=== PATIENT | female | born 1970 | race American Indian/Alaskan Native ===

== ENCOUNTER 2017-07-28 18:06 | Emergency (ER) | payer OTHER ==
[2017-07-28 18:24] VITALS: BMI 39.5
[2017-07-28 18:25] VITALS: RESP 18; TEMP 99
[2017-07-28 20:04] LABS: BASO # 0.03 K/mm3 (0.0-2.0); BASO % 0.3 % (0.0-3.0); EOS # 0.2 (0.0-0.7); EOS % 1.9 % (1.5-5.0); GRAN # 6.5 (1.4-6.5); GRAN % 61.1 % (50.0-68.0); HEMOGLOBIN 12.2 g/dL (12.0-16.0); LYMPH # 2.7 (1.2-3.4); LYMPH % 25.4 % (22.0-35.0); MEAN CELL VOLUME 75.4 fl (80.0-105.0); MEAN CORPUSCULAR HEMOGLOBIN 23.8 pg (25.0-35.0); MEAN CORPUSCULAR HGB CONC 31.5 g/dl (31.0-37.0); MEAN PLATELET VOLUME 9.8 fl (7.0-11.0); MONO # 1.2 (0.1-0.6); MONO % 11.3 % (1.0-6.0); RBC 5.13 10^6/uL (3.5-6.1); RED CELL DISTRIBUTION WIDTH 17.7 % (11.5-14.5); WHITE BLOOD COUNT 10.6 10^3/ul (4.5-11.0)
[2017-07-28 20:32] LABS: INFLUENZA A B NEGATIVE FOR FLU A/B (NEGATIVE)
[2017-07-28 20:32] LABS: ALB/GLOB RATIO 1.1 (1.1-1.8); ALBUMIN 3.6 g/dL (3.0-4.8); ALT/SGPT 32 U/L (7-56); AST/SGOT 38 U/L (14-36); BLOOD UREA NITROGEN 12 mg/dL (7-21); GFR AFRICAN-AMERICAN > 60; GFR NON-AFRICAN AMERICAN > 60; LIPASE 51 U/L (23-300)
[2017-07-28 21:04] LABS: URINE BILIRUBIN NEGATIVE (NEGATIVE); URINE BLOOD TRACE-INTACT (NEGATIVE); URINE GLUCOSE (UA) NEGATIVE (NEGATIVE); URINE LEUKOCYTE ESTERASE NEGATIVE Leu/uL (NEGATIVE); URINE NITRATE NEGATIVE (NEGATIVE); URINE PROTEIN NEGATIVE mg/dL (<30 mg/dL); URINE UROBILINOGEN 0.2 E.U./dL (<1 E.U./dL)
[2017-07-28 21:11] LABS: URINE APPEARANCE CLEAR (CLEAR); URINE COLOR YELLOW (YELLOW)
[2017-07-28] MEDS ORDERED: levoFLOXacin 500 MG TAB PO STA (21:13)
[2017-07-28 21:17] LABS: HCG,QUALITATIVE URINE NEGATIVE (NEGATIVE); URINE BACTERIA MOD (NEG)
--- NOTE | 2017-07-28 21:18 | ED PDOC ---
Arrival/HPI - General Chief Complaint: Abdominal Pain Time Seen by Provider: 07/28/17 19:05 Historian: Patient - History of Present Illness Narrative History of Present Illness (Text): 07/28/17 21:00 Alfreda Travis is a 46 year old female, whose past medical history includes hypertension and hypothyroidism, who presents to the Emergency department complaining of sore throat for the past couple of days. Patient also reports subjective fever, diarrhea, and LLQ discomfort. Patient denies any chest pain, shortness of breath, nausea, vomiting, urinary symptoms, back pain, neck pain, headache, dizziness, or any other complaints. Symptom Onset: Gradual Symptom Course: Unchanged Activities at Onset: Light Context: Home Past Medical History - Provider Review Nursing Documentation Reviewed: Yes - Infectious Disease Hx of Infectious Diseases: None - Tetanus Immunization Tetanus Immunization: Unknown - Cardiac Hx Hypertension: Yes - Pulmonary Hx Sleep Apnea: Yes - Neurological Hx Neurological Disorder: No - Endocrine/Metabolic Hx Hypothyroidism: Yes - Musculoskeletal/Rheumatological Other/Comment: Sciatica - Psychiatric Hx Substance Use: No - Surgical History Hx Dilation and Curettage: Yes Hx Orthopedic Surgery: Yes (R knee sx/arthroscopy) Other/Comment: Left ankle - Anesthesia Hx Anesthesia: Yes Hx Anesthesia Reactions: No Family/Social History - Physician Review Nursing Documentation Reviewed: Yes Family/Social History: Unknown Family HX Smoking Status: Never Smoked Hx Alcohol Use: No Hx Substance Use: No Allergies/Home Meds Allergies/Adverse Reactions: Allergies amoxicillin trihydrate [From Augmentin] Allergy (Verified 02/23/16 17:27) RASH potassium clavulanate [From Augmentin] Allergy (Verified 02/23/16 17:27) RASH Home Medications: Home Meds Medication Instructions Recorded Confirmed Levothyroxine [Synthroid] 112 mcg PO DAILY 02/23/16 07/28/17 Zolpidem [Ambien] 10 mg PO HS 02/23/16 07/28/17 Review of Systems - Physician Review All systems were reviewed & negative as marked: Yes - Review of Systems Constitutional: Fevers Eyes: Normal ENT: Sore Throat Respiratory: Normal. absent: SOB, Cough Cardiovascular: Normal. absent: Chest Pain Gastrointestinal: Diarrhea. absent: Abdominal Pain, Nausea, Vomiting Genitourinary Female: Normal. absent: Dysuria, Frequency, Hematuria, Urine Output Changes Musculoskeletal: Normal. absent: Back Pain, Neck Pain Skin: Normal. absent: Rash Neurological: Normal. absent: Headache, Dizziness Endocrine: Normal Hemo/Lymphatic: Normal Psychiatric: Normal Physical Exam Vital Signs Reviewed: Yes Vital Signs Temp Pulse Resp BP Pulse Ox 07/28/17 21:38 74 18 139/83 98 07/28/17 18:24 99.0 F 80 18 131/83 97 Temperature: Afebrile Blood Pressure: Normal Pulse: Regular Respiratory Rate: Normal Appearance: Positive for: Well-Appearing, Non-Toxic, Comfortable Pain Distress: None Mental Status: Positive for: Alert and Oriented X 3 - Systems Exam Head: Present: Atraumatic, Normocephalic Pupils: Present: PERRL Extroacular Muscles: Present: EOMI Conjunctiva: Present: Normal Ears: Present: Normal, NORMAL TM, Normal Canal. No: Erythema Mouth: Present: Moist Mucous Membranes Pharnyx: Present: ERYTHEMA (Pharyngeal erythema). No: EXUDATE, TONSILS ENLARGED , Peritonsilar Swelling, Uvular Deviation, Muffled/Hoarse Voice, Strider, Soft Palate/Uvular Edema Nose (External): Present: Atraumatic Nose (Internal): Present: Normal Inspection Neck: Present: Normal Range of Motion. No: Meningeal Signs, MIDLINE TENDERNESS , Paraspinal Tenderness Respiratory/Chest: Present: Clear to Auscultation, Good Air Exchange. No: Respiratory Distress, Accessory Muscle Use Cardiovascular: Present: Regular Rate and Rhythm, Normal S1, S2. No: Murmurs Abdomen: Present: Normal Bowel Sounds. No: Tenderness, Distention, Peritoneal Signs Back: Present: Normal Inspection. No: CVA Tenderness, Midline Tenderness, Paraspinal Tenderness Upper Extremity: Present: Normal Inspection. No: Cyanosis, Edema Lower Extremity: Present: Normal Inspection. No: Edema Neurological: Present: GCS=15, CN II-XII Intact, Speech Normal Skin: Present: Warm, Dry, Normal Color. No: Rashes Psychiatric: Present: Alert, Oriented x 3, Normal Insight, Normal Concentration Medical Decision Making ED Course and Treatment: 07/28/17 19:20 Impression: 46 year old female complaining of sore throat, subjective fever, diarrhea, and LLQ discomfort for the past couple of days. Differential Diagnosis included but are not limited to: pharyngitis vs. viral syndrome Plan: -- Labs, lipase -- Rapid strep -- Throat culture -- Urinalysis, urine cultures -- Reassess and disposition Progress Notes: 07/28/17 21:40 On reevaluation the patient feels better and is in no acute distress. I have discussed the results and plan with the patient, who expresses understanding. Patient given the opportunity to ask question, all questions were answered and there is agreement with the plan to discharge the patient home Patient is stable for discharge. Patient was instructed to follow up with physician/clinic in 1-2 days or return if symptoms persist/worsen or new concerning symptoms arise. - Lab Interpretations Lab Results: 07/28/17 19:49 07/28/17 19:49 Lab Results 07/28/17 20:50: Urine Color Yellow, Urine Appearance Clear, Urine pH 6.0, Ur Specific [place] 1.020, Urine Protein Negative, Urine Glucose (UA) Negative, Urine Ketones Negative, Urine Blood Trace-intact H, Urine Nitrate Negative, Urine Bilirubin Negative, Urine Urobilinogen 0.2, Ur Leukocyte Esterase Negative , Urine RBC 2 - 5, Urine WBC 1 - 3, Ur Epithelial Cells 4 - 5, Urine Bacteria Mod, Urine HCG, Qual Negative 07/28/17 19:56: Influenza Typ A,B (EIA) Negative for flu a/b, Grp A Beta Strep Ag Negative 07/28/17 19:49: Sodium 140, Potassium 3.9, Chloride 102, Carbon Dioxide 25, Anion Gap 17, BUN 12, Creatinine 0.9, Est GFR ( Amer) > 60, Est GFR (Non- Af Amer) > 60, Random Glucose 91, Calcium 9.0, Total Bilirubin 0.2, AST 38 H, ALT 32, Alkaline Phosphatase 72, Total Protein 7.0, Albumin 3.6, Globulin 3.4, Albumin/Globulin Ratio 1.1, Lipase 51 07/28/17 19:49: WBC 10.6, RBC 5.13, Hgb 12.2, Hct 38.7, MCV 75.4 L, MCH 23.8 L, MCHC 31.5, RDW 17.7 H, Plt Count 327, MPV 9.8, Gran % 61.1, Lymph % (Auto) 25.4 , [place] % (Auto) 11.3 H, Eos % (Auto) 1.9, Baso % (Auto) 0.3, Gran # 6.50, Lymph # (Auto) 2.7, [place] # (Auto) 1.2 H, Eos # (Auto) 0.2, Baso # (Auto) 0.03 I have reviewed the lab results: Yes - Medication Orders Current Medication Orders: Discontinued Medications Levofloxacin (Levaquin) 500 mg PO STAT STA PRN Reason: Protocol Stop: 07/28/17 21:14 Last Admin: 07/28/17 21:30 Dose: 500 mg - Scribe Statement The provider has reviewed the documentation as recorded by the Scribmissael Russell All medical record entries made by the Nicolasibmissael were at my direction and personally dictated by me. I have reviewed the chart and agree that the record accurately reflects my personal performance of the history, physical exam, medical decision making, and the department course for this patient. I have also personally directed, reviewed, and agree with the discharge instructions and disposition. Disposition/Present on Arrival - Present on Arrival Any Indicators Present on Arrival: No History of DVT/PE: No History of Uncontrolled Diabetes: No Urinary Catheter: No History of Decub. Ulcer: No History Surgical Site Infection Following: None - Disposition Have Diagnosis and Disposition been Completed?: Yes Diagnosis: Pharyngitis Disposition: HOME/ ROUTINE Disposition Time: 21:40 Condition: GOOD Discharge Instructions (ExitCare): Sore Throat, Adult (DC) Prescriptions: levoFLOXacin [Levaquin] 500 mg PO DAILY #10 tab Referrals: Laci Fernandes MD [Primary Care Provider] - Follow up with primary Forms: [facility] (Croatian), WORK NOTE
[2017-07-28 21:38] VITALS: BP 139/83; PULSE 74; O2SAT 98
== END 2017-07-28 21:42 | disposition home or self-care (01) ==
LOC: ED 18:06
DX: J02.9 Acute pharyngitis, unspecified (principal); I10 Essential (primary) hypertension

== ENCOUNTER 2018-08-07 15:46 | Emergency (ER) | payer OTHER ==
[2018-08-07 15:47] VITALS: BMI 39.5
[2018-08-07 16:21] VITALS: TEMP 98.2
--- NOTE | 2018-08-07 17:22 | ED PDOC ---
Arrival/HPI - General Chief Complaint: Hip Pain Time Seen by Provider: 08/07/18 15:47 Historian: Patient - History of Present Illness Narrative History of Present Illness (Text): 08/07/18 17:49 47-year-old female presents today with right hip pain and low back pain status post fall. Patient states just prior to arrival she slipped on the ice and fell landing on the right side. Patient denies hitting her head. Patient denies abdominal pain. No nausea or vomiting. No chest pain or shortness of breath. Patient states she has a history of sciatica and was concerned of falling on the hip would make the sciatica worse. Patient states she is now having some pain in the right lower back and in the right hip that radiates into the leg. She denies numbness weakness or tingling in the extremity. No dizziness or weakness. Denies headaches. No medications taken for pain at home. No other complaints Past Medical History - Provider Review Nursing Documentation Reviewed: Yes - Travel History Have you recently traveled outside [place] w/in the past 3 mons?: No - Infectious Disease Hx of Infectious Diseases: None - Tetanus Immunization Tetanus Immunization: Unknown - Cardiac Hx Cardiac Disorders: Yes Hx Hypertension: Yes - Pulmonary Hx Respiratory Disorders: Yes Hx Sleep Apnea: Yes - Neurological Hx Neurological Disorder: No - HEENT Hx HEENT Disorder: No - Renal Hx Renal Disorder: No - Endocrine/Metabolic Hx Endocrine Disorders: Yes Hx Hypothyroidism: Yes - Hematological/Oncological Hx Blood Disorders: No - Integumentary Hx Dermatological Disorder: No - Musculoskeletal/Rheumatological Hx Musculoskeletal Disorders: Yes Hx Back Pain: Yes Other/Comment: Sciatica - Gastrointestinal Hx Gastrointestinal Disorders: No - Genitourinary/Gynecological Hx Genitourinary Disorders: No - Psychiatric Hx Psychophysiologic Disorder: No Hx Substance Use: No - Surgical History Hx Dilation and Curettage: Yes Hx Orthopedic Surgery: Yes (R knee) Other/Comment: Left ankle - Anesthesia Hx Anesthesia: Yes Hx Anesthesia Reactions: No Family/Social History - Physician Review Nursing Documentation Reviewed: Yes Family/Social History: Unknown Family HX Smoking Status: Never Smoked Hx Alcohol Use: No Hx Substance Use: No Allergies/Home Meds Allergies/Adverse Reactions: Allergies amoxicillin trihydrate [From Augmentin] Allergy (Verified 08/07/18 16:00) RASH potassium clavulanate [From Augmentin] Allergy (Verified 08/07/18 16:00) RASH Home Medications: Home Meds Medication Instructions Recorded Confirmed Levothyroxine [Synthroid] 112 mcg PO DAILY 02/23/16 08/07/18 Zolpidem [Ambien] 10 mg PO HS 02/23/16 08/07/18 Review of Systems - Review of Systems Constitutional: absent: Fatigue, Fevers Respiratory: absent: SOB, Cough Cardiovascular: absent: Chest Pain, Palpitations Gastrointestinal: absent: Abdominal Pain, Constipation, Diarrhea, Nausea, Vomiting Genitourinary Female: absent: Urine Output Changes Musculoskeletal: Arthralgias (right hip pain), Back Pain. absent: Neck Pain Skin: absent: Rash, Pruritis Neurological: absent: Headache, Dizziness Psychiatric: absent: Anxiety, Depression Physical Exam Vital Signs Reviewed: Yes Vital Signs Temp Pulse Resp BP Pulse Ox 08/07/18 16:02 98.2 F 83 16 128/80 98 Temperature: Afebrile Blood Pressure: Normal Pulse: Regular Respiratory Rate: Normal Appearance: Positive for: Well-Appearing, Non-Toxic, Comfortable Pain Distress: None Mental Status: Positive for: Alert and Oriented X 3 - Systems Exam Head: Present: Atraumatic Mouth: Present: Moist Mucous Membranes Neck: Present: Normal Range of Motion, Trachea Midline. No: MIDLINE TENDERNESS, Paraspinal Tenderness Respiratory/Chest: Present: Clear to Auscultation, Good Air Exchange. No: Respiratory Distress, Accessory Muscle Use Cardiovascular: Present: Regular Rate and Rhythm, Normal S1, S2. No: Murmurs Abdomen: No: Tenderness Back: Present: Normal Inspection, Paraspinal Tenderness (+ right sided low lumbar paraspinal tenderness; no edema, no erythema; no ecchymosis; ). No: CVA Tenderness, Midline Tenderness Upper Extremity: Present: Normal Inspection, Normal ROM Lower Extremity: Present: Normal Inspection, Normal ROM, Tenderness (right hip; + ttp over lateral and posterior aspect of hip; full rom of hip with pain; no ecchymosis; no edema, no erythema; sensation and distal pulses intact. cap refill <2. ), Neurovascularly Intact, Capillary Refill < 2 s. No: Swelling, Erythema, Deformity Neurological: Present: GCS=15, Speech Normal Skin: Present: Warm, Dry, Normal Color. No: Rashes Psychiatric: Present: Alert, Oriented x 3 Medical Decision Making ED Course and Treatment: 08/07/18 18:15 47-year-old female with right hip and back pain status post slip and fall. X-rays of the right hip:FINDINGS: BONES: The pelvic ring is intact. There is no acute displaced fracture or bone destruction. Bone alignment is normal. JOINTS: There is mild degenerative osteoarthrosis in the hip joints with reduced joint spaces and marginal spurring. There is a large bony spur in the lateral right acetabulum. SOFT TISSUES: Normal. OTHER FINDINGS: None. IMPRESSION: No acute displaced fracture or dislocation. Mild degenerative osteoarthrosis in the hip joints. Large bony spur in the right lateral acetabulum. X-rays of the lumbar spine: No fracture Patient nontoxic well-appearing in no distress with stable vital signs. Toradol and Valium given Patient reassessment: Feeling better with medications ambulating with a steady gait. Muscle strength 5 out of 5 bilaterally. I advised to followup with the orthopedist within the next 2 days. Return if symptoms worsen persist or new symptoms develop Patient verbalizes understanding of discharge instructions and need for immediate followup. All aspects of this case were discussed the attending of record. Impression: Back pain, hip pain, arthritis Motrin every 6 hours as needed for pain Flexeril one tablet every 8 hours as needed for muscle spasms: May cause d rowsiness Followup with the orthopedist within the next 2 days Followup with primary care physician within the next 2 days Return if symptoms worsen persist or if new symptoms develop Reassessment Condition: Re-examined, Improved - RAD Interpretation Radiology Orders: 08/07/18 16:57 Hip Right [HIP MIN 2V W/ PELVIS RT] [RAD] Stat LS SPINE WITH OBL > 18 YRS OLD [RAD] Stat - Medication Orders Current Medication Orders: Discontinued Medications Diazepam (Valium) 5 mg PO ONCE ONE Stop: 08/07/18 16:58 Ketorolac Tromethamine (Toradol) 60 mg IM STAT STA Stop: 08/07/18 16:58 Disposition/Present on Arrival - Present on Arrival Any Indicators Present on Arrival: No History of DVT/PE: No History of Uncontrolled Diabetes: No Urinary Catheter: No History of Decub. Ulcer: No History Surgical Site Infection Following: None - Disposition Have Diagnosis and Disposition been Completed?: Yes Diagnosis: Back pain, Hip pain, Arthritis Disposition: HOME/ ROUTINE Disposition Time: 18:16 Patient Plan: Discharge Patient Problems: Current Active Problems Problem Status Onset Back pain Acute Hip pain Acute Condition: GOOD Discharge Instructions (ExitCare): Low Back Pain (DC), Hip Pain (DC) Additional Instructions: Motrin every 6 hours as needed for pain Flexeril one tablet every 8 hours as needed for muscle spasms: May cause drowsiness Followup with the orthopedist within the next 2 days Followup with primary care physician within the next 2 days Return if symptoms worsen persist or if new symptoms develop Prescriptions: Cyclobenzaprine [Cyclobenzaprine HCl] 10 mg PO Q8 #10 tab Ibuprofen [Motrin] 600 mg PO Q6H PRN #20 tab PRN Reason: pain/fever reduction Referrals: Geronimo Del Toro MD [Staff Provider] - Follow up with primary Shanthi Willis MD [Medical Doctor] - Follow up with primary [facility] [Outside] - Follow up with primary [facility] [Outside] - Follow up with primary Forms: [facility] (Khmer), WORK NOTE
--- NOTE | 2018-08-07 18:27 | RAD ---
PROCEDURE: Right Hip Radiographs. HISTORY: hip pain COMPARISON: None. FINDINGS: BONES: The pelvic ring is intact. There is no acute displaced fracture or bone destruction. Bone alignment is normal. JOINTS: There is mild degenerative osteoarthrosis in the hip joints with reduced joint spaces and marginal spurring. There is a large bony spur in the lateral right acetabulum. SOFT TISSUES: Normal. OTHER FINDINGS: None. IMPRESSION: No acute displaced fracture or dislocation. Mild degenerative osteoarthrosis in the hip joints. Large bony spur in the right lateral acetabulum.
--- NOTE | 2018-08-07 18:31 | RAD ---
Date of service: 08/07/2018 PROCEDURE: Radiographs of the Lumbar Spine. HISTORY: back pain COMPARISON: No prior. FINDINGS: BONES: There is normal alignment of the lumbar vertebral bodies. There is normal lumbar lordosis. There is no acute fracture, spondylolysis or spondylolisthesis. Bone mineralization is normal. DISC SPACES: There is severe degenerative disc disease at L5-S1 with near complete loss of disc height, anterior osteophytes and facet arthropathy. There is also mild degenerative disc disease at L2-3 with anterior spurring and mild reduced disc height. The remaining disc heights are maintained. OTHER FINDINGS: There are no pathologic soft tissue calcifications. Both sacroiliac joints are normal. IMPRESSION: No acute fracture, spondylolysis or spondylolisthesis. Severe degenerative disc disease at L5-S1.
[2018-08-07 18:57] VITALS: BP 113/51; PULSE 78; RESP 18; O2SAT 100
== END 2018-08-07 19:03 | disposition home or self-care (01) ==
LOC: ED 15:46
DX: M16.11 Unilateral primary osteoarthritis, right hip (principal); M25.551 Pain in right hip; M54.5 Low back pain
CPT/HCPCS: 72110; 73502; 81025; 96372; 99285; J1885